=== PATIENT | male | born 1975 | race Two or more races ===

== ENCOUNTER 2022-10-15 10:55 | Day surgery (SDC) | payer OTHER, SELFPAY ==
[~2022-10-15 10:55] MED LIST: HEPARIN 10,000 UNIT/10 ML VIAL IV ONE
[2022-10-15] MEDS ORDERED: HEPA 1000U/500MLS 2,000 UNIT/1,000 ML BAG IV ONE (11:00)
[2022-10-15] MEDS ORDERED: LIDOCAINE 1% 20 ML MDV ONE (11:00)
[2022-10-15] MEDS ORDERED: NA CHLORIDE 0.9% 500 ML ONE (11:07)
[2022-10-15 11:22] LABS: Absolute Lymphocytes (CBC) 2.8 K/uL (0.7-4.9); Hematocrit 41.8 % (39.6-49.0); Lymphocytes % 34.3 % (15.3-44.8); MCV 89.8 fL (80-100); MPV 8.4 fL (7.6-11.3); RBC Red Blood Cell Count 4.66 M/uL (4.33-5.43)
[2022-10-15] MEDS ORDERED: MIDAZOLAM HCL 2 MG/2 ML INJ ONE (11:26)
[2022-10-15] MEDS ORDERED: FENTANYL CITR 100 MCG/2 ML ONE (11:26)
[2022-10-15] MEDS ORDERED: ATROPINE SULF 1 MG/10 ML SYR IV ONE (11:27)
[2022-10-15] MEDS ORDERED: HEPARIN 5000 UNIT/ML 1 ML VIAL ONE (11:27)
[2022-10-15] MEDS ORDERED: VERAPAMIL HCL 10 MG/4 ML VIAL IV ONE (11:27)
--- NOTE | 2022-10-15 11:29 | RAD REPORT ---
EXAM DESCRIPTION: RAD - Chest Single View - 10/15/2022 11:22 am CLINICAL HISTORY: pre procedure COMPARISON: No comparisons FINDINGS: Lines: None. Lungs: No evidence of edema or pneumonia. Pleural: No significant pleural effusions or pneumothorax. Cardiac: The heart size is within normal limits. Mediastinum: Within normal limits. Bones: No acute fractures. Other: None IMPRESSION: No acute cardiopulmonary disease.
[2022-10-15] MEDS ORDERED: CLOPIDOGREL 75 MG TABLET ONE (11:32)
[2022-10-15] MEDS ORDERED: TICAGRELOR 90 MG TABLET PO ONE (11:33)
[2022-10-15 11:36] LABS: Protime INR 0.99
[2022-10-15 11:42] LABS: Potassium 3.8 mEq/L (3.5-5.1)
[2022-10-15 14:21] VITALS: BP 121/71; O2SAT 100
--- NOTE | 2022-10-15 19:56 | OP ---
Date of Procedure: 10/15/2022 Surgeon: MICHELLE PALOMO Procedures: 1.Selective coronary angiogram. 2.Left heart catheterization. Indication: Unstable angina. Access: Right radial artery 6-Lebanese closed with TR band. Complications: None. Estimated Blood Loss: Bleeding less than 20 mL. Anesthesia: Total sedation time was 25 minutes, used fentanyl and Versed. Description Of Procedure: After risks, benefits, and alternatives were explained, the patient agreed to procedure and signed informed consent. The patient was brought into the cardiac catheterization laboratory and prepped and draped in sterile fashion. Then, I accessed the radial artery using pedVerafin tric micropuncture kit, placed 6-Lebanese Slender sheath and took a 5-Lebanese [place] 4 catheter into aort ic root, engaged left main and then right coronary artery, and took standard views. Catheter was pus hed over the wire into the LV and measured LVEDP. Pullback did not record any gradient. Then remove d the catheter and sheath and placed TR band with good hemostasis. Findings: 1.Left Main: Large and normal. 2.LAD: Large and normal. Normal diagonal branches. 3.Left circumflex: [id number] and normal. Normal OM branches. 4.RCA: Large and dominant, normal. 5.LVEDP slightly elevated between 10 and 14 mmHg. Conclusion: 1.Normal coronary arteries. 2.Mildly elevated left ventricular end-diastolic pressure. Recommendations: Medical management. /[email or web address] Voice ID: [id number] Report ID: [id number]
--- NOTE | 2022-10-17 14:47 | EKG ---
Test Date: 2022-10-15 Test Time: 11:51:46 [employer]pper: TW MEASUREMENT RESULTS: Intervals: Rate: 57 MO: 134 QRSD: 98 QT: 388 QTc: 377 Rogers: P: 53 MO: 134 QRS: 78 T: 69 INTERPRETIVE STATEMENTS: Sinus bradycardia Otherwise normal ECG No previous ECG available for comparison Electronically Signed On 10-17-22 14:44:30 CDT by Garcia Morrison
== END 2022-10-15 14:20 | disposition home or self-care (01) ==
LOC: CCL 10:55
PROVIDERS: ATTEND Internal Medicine
DX: I20.0 Unstable angina (principal); R94.39 Abnormal result of other cardiovascular function study; R94.31 Abnormal electrocardiogram [ECG] [EKG]; Z87.891 Personal history of nicotine dependence; Z82.49 Family history of ischemic heart disease and other diseases of the circulatory system
CPT/HCPCS: 93005; 85025; 80048; 36415; 85610; 85730; 71045; 93458; 76937; C1893; Q9966; J1644; J2001; J2250; J3010; J7040; J0461